=== PATIENT | female | born 1995 | race Caucasian/White ===

== ENCOUNTER 2021-12-28 01:47 | Emergency (ER) | payer OTHER ==
[~2021-12-28 01:47] MED LIST: COLACE 100MG C100 MG PO; IBUPROFEN600 MG PO; NORCO 5-325 TA1 EACH PO
[2021-12-28 04:03] LABS: BUN/CREATININE RATIO 18 (0-10)
[2021-12-28 05:10] LABS: HEMOGLOBIN 13.3 gm/dl (12.3-15.3); RED BLOOD COUNT 4.78 M/UL (4.00-5.10); WHITE BLOOD COUNT 12.5 K/UL (4.5-11.0)
[2021-12-28] MEDS ORDERED: ASPIRIN CHEWABL81 MG PO (08:30)
[2021-12-31] MEDS ORDERED: PROTONIX40 MG PO (04:19)
[2021-12-31] MEDS ORDERED: VISTARIL 50 MG50 MG PO (04:19)
== END 2021-12-28 08:40 | disposition home or self-care (01) ==
LOC: ER1 01:47
PROVIDERS: Student in an Organized Health Care Education/Training Program
DX: R07.89 Other chest pain (principal)
CPT/HCPCS: 71045; 80053; 81001; 82550; 82553; 83735; 84439; 84443; 84484; 84703; 85025; 85379; 93005; 99285